=== PATIENT | male | born 1965 | race Caucasian/White ===

== ENCOUNTER 2024-02-07 07:37 | Observation (INO) ==
[2024-02-07] MEDS: ASPIRIN CHEW 324 MG PO STA (07:51)
--- NOTE | 2024-02-07 07:52 | Emergency Department Note ---
Impression & Plan Chest pain, Abnormal EKG ED Provider Note NAME: KRISTY BELLO AGE: 58 SEX: M : 1965 ARRIVES VIA: Walk-In INFORMANT: Patient, ED PROVIDER(S): Charlie Forde DO CHIEF COMPLAINT: Chest pain HPI: The patient is a 58-year-old male who presented to the emergency department for an evaluation of chest pain. The patient describes left-sided anterior chest pain. He states it began while he was driving to work. He denies having any vomiting. He does complain of some nausea. The pain is not worsened with lying flat or with breathing. He denies having any leg swelling or leg pain. The patient does not have a history of coronary artery disease. He has no history of a cath or stent. The patient came directly to the emergency department because he was on his way to work. The patient states the pain has been constant. ROS: See above HPI for pertinent positives & negatives. A total of 10 systems reviewed and were otherwise negative. PAST MEDICAL HISTORY: See Below PAST SURGICAL HISTORY: See Below FAMILY HISTORY: See Below SOCIAL HISTORY: See Below HOME MEDICATIONS: See Below ALLERGIES: See Below VITALS: See Below PHYSICAL EXAMINATION: GENERAL: Patient is awake alert in no acute distress patient is resting comfortably and showing no signs of anxiety EYES: The conjunctivae are clear. The pupils are round and reactive. EARS, NOSE, MOUTH AND THROAT: The nose is without any evidence of any deformity. NECK: The neck is nontender and supple. RESPIRATORY: Normal respiratory effort is noted there is no evidence of wheezing rhonchi or rales CARDIOVASCULAR: Regular rate and rhythm noted there no murmurs rubs or gallops normal S1 normal S2. GASTROINTESTINAL: The abdomen is soft. Abdomen is nontender. MUSCULOSKELETAL/EXTREMITIES: There is no evidence of gross deformity full range of motion is noted in the hips and shoulders. SKIN: There is no obvious evidence of any rash. There are no petechiae, pallor or cyanosis noted. NEUROLOGIC: Patient is awake alert and oriented x3 MEDICAL DECISION MAKING: The patient is a 58-year-old male who presented to the emergency department for an evaluation of chest pain. The patient describes chest pain that began at rest. The patient had some ST segment abnormalities that were very nonspecific on his initial EKG. Cardiac biomarker was negative x 2. Given the patient's age and comorbidities I do not feel that he would be a good candidate for outpatient management of this chest pain although I did discuss the patient's condition with him I discussed the patient's laboratory and radiographic studies with him. I also discussed the limitations of the emergency department workup for chest pain with him. I did calculate a heart score at the bedside which was 4. At this time the patient and his significant other did discuss the options and they would prefer inpatient workup for this as they do not live very close to the hospital. For this reason I discussed his condition with the on-call [facility] hospitalist. Triage Nursing notes reviewed. Prior medical records reviewed Vital Signs: reviewed and remarkable for no significant abnormalities Differential diagnosis: Cardiac ischemia, aortic dissection, pulmonary embolism, pneumothorax, pneumonia, pericarditis, myocarditis, esophageal rupture, GERD, cholecystitis, pancreatitis, musculoskeletal, as well as other pathologies. ER treatment provided: See below Diagnostics interpreted by me: ECG: EKG was obtained in the emergency department. My interpretation is normal sinus rhythm at 71 bpm. There was no ectopy. Early transition was noted with ST segment depression and T wave inversion noted in the anterior leads. No previous tracing was available. Cardiac Monitoring: An order was placed for continuous cardiac monitoring. The monitor shows a rate of 61 bpm with sinus rhythm. Laboratory studies: As stated above and show below. Imaging studies: See below. Radiographic imaging was reviewed by myself Consultation(s): I discussed this case with Roxann who is on-call for the [facility] group. Past Med/Surg History Problem List (Updated 02/07/24 @ 13:22 by Charlie Forde DO) Abnormal EKG (Acute) Chest pain (Acute) Social History Smoking Status: Former smoker Preferred Language: Welsh Feels Safe at Home: Yes Allergies Allergies Allergy/AdvReac Type Severity Reaction Status Date / Time [id number] Allergy Unknown Uncoded 03/18/04 12:20 Home Meds Home Medications Medication Instructions Recorded Confirmed doxycycline hyclate 100 mg capsule 100 mg PO BID 02/07/24 02/07/24 fenofibrate nanocrystallized 145 145 mg PO DAILY 02/07/24 02/07/24 mg tablet meloxicam 7.5 mg tablet 7.5 mg PO DAILY 12/11/24 12/11/24 simvastatin 20 mg tablet 20 mg PO DAILY 02/07/24 02/07/24 Results & Data (ED) Vital Signs Vital Signs - 24 hr 02/07/24 07:40 02/07/24 07:58 02/07/24 07:58 Temperature 36.2 C L Temperature Source Temporal Artery Scan Pulse Rate 66 62 Pulse Rhythm Regular Respiratory Rate 18 20 Blood Pressure 161/88 H Blood Pressure Mean 112 Pulse Oximetry 93 94 94 Oxygen Delivery Method Room Air Room Air Room Air Oxygen Flow Rate 0 Sepsis Recent Fever Within 48 Hours No Sepsis New/Unexplained Change in Mental Status No Sepsis Action Taken by Nursing No Action Required 02/07/24 08:54 02/07/24 08:55 02/07/24 09:30 Temperature Temperature Source Pulse Rate 64 61 57 L Pulse Rhythm Respiratory Rate 21 24 Blood Pressure 171/95 H 159/86 H Blood Pressure Mean 120 110 Pulse Oximetry 94 96 Oxygen Delivery Method Oxygen Flow Rate Sepsis Recent Fever Within 48 Hours Sepsis New/Unexplained Change in Mental Status Sepsis Action Taken by Nursing 02/07/24 09:30 02/07/24 10:00 Temperature Temperature Source Pulse Rate 61 Pulse Rhythm Respiratory Rate 20 Blood Pressure 159/86 H 148/85 H Blood Pressure Mean 112 108 Pulse Oximetry 95 Oxygen Delivery Method Oxygen Flow Rate Sepsis Recent Fever Within 48 Hours Sepsis New/Unexplained Change in Mental Status Sepsis Action Taken by [facility] Medications Current Medication List: was personally reviewed by me Laboratory Data Attestation: I reviewed the patient's lab results. 02/07/24 07:55 02/07/24 07:55 Lab Results 02/07/24 02/07/24 Range/Units 07:55 10:29 WBC 4.43 L (4.8-10.8) K/ul RBC 5.07 (4.70-6.10) M/uL Hgb 14.9 (14.0-18.0) g/dl Hct 44.7 (42.0-52.0) % MCV 88.2 (80.0-100.0) fL MCH 29.4 (25.0-34.0) pg MCHC 33.3 (32.0-36.0) g/dL RDW Std Deviation 41.1 (36.4-46.3) fL RDW Coeff of Taisha 12.8 (11.5-14.5) % Plt Count 288 (130-400) K/uL MPV 9.2 L (9.4-12.4) fL Immature Gran % (Auto) 0.2 % Neut % (Auto) 42.5 % Lymph % (Auto) 42.4 % [place] % (Auto) 9.9 % Eos % (Auto) 4.1 % Baso % (Auto) 0.9 % Neut # (Auto) 1.88 (1.40-6.50) K/uL Lymph # (Auto) 1.88 (1.20-3.40) K/uL [place] # (Auto) 0.44 (0.11-0.59) K/uL Eos # (Auto) 0.18 (0.00-0.50) K/uL Baso # (Auto) 0.04 (0.00-0.20) K/uL Immature Gran # (Auto) 0.01 (0.01-0.20) K/uL PT 10.6 (9.0-12.0) Seconds INR 1.0 (0.9-1.1) APTT 27 (21-31) Seconds PTT Ratio 1.0 D-Dimer 370 (0-500) ug/L FEU Sodium 139 (136-145) mmol/L Potassium 3.8 (3.5-5.1) mmol/L Chloride 105 (98-107) mmol/L Carbon Dioxide 29 (21-32) mmol/L Anion Gap 5 (3-11) BUN 20 (6-23) mg/dl Creatinine 0.92 (0.6-1.4) mg/dl Est Cr Clr Drug Dosing 126.1 ml/min eGFR 95.23 BUN/Creatinine Ratio 21.7 H (10-20) Glucose 150 H (70-99(Fasting)) mg/dl Calcium 9.3 (8.6-10.3) mg/dl Total Bilirubin 0.6 (0.2-1.0) mg/dl AST 25 (13-39) U/L ALT 35 (7-52) U/L Alkaline Phosphatase 82 (34-104) U/L Troponin I High Sens 6.6 5.9 (0-20) pg/ml Total Protein 7.0 (6.0-8.3) gm/dl Albumin 4.2 (3.4-5.0) gm/dl Globulin 2.8 (2.5-4.0) gm/dl Albumin/Globulin Ratio 1.5 (0.9-2) Lipase 15 (11-82) U/L Administered Medications Discontinued Medications Aspirin (Aspirin Chew 324 Mg) 324 mg PO NOW STA Stop: 02/07/24 07:50 Last Admin: 02/07/24 07:51 Dose: 324 mg Documented By: JASON Imaging Data Attestation: I personally reviewed and interpreted this imaging study as follows: My Impression: View chest x-ray was obtained in the emergency department. My interpretation is no free air or definite infiltrate, final report below. Radiologist's Impression: Chest X-Ray 02/07/24 07:49 XR chest 1V portable HISTORY: 58 years-old Male Chest pain, nonspecific acute mid chest pain COMPARISON: None TECHNIQUE: AP view of the chest FINDINGS: Cardiomediastinal and hilar silhouettes are within normal limits. There is no pneumothorax, pleural effusion or airspace consolidation. Bones appear grossly intact IMPRESSION: No acute process. ACT 112: Negative or not required by law. The above report was generated using voice recognition software. It may contain grammatical, syntax or spelling errors. Electronically signed by: Juan Rivera M.D. 02/07/2024 8:26 AM Discharge Plan Visit Data Chief Complaint: Chest Pain Stated Complaint: CHEST PAIN, FEELS WIERD ED Provider: Charlie Forde Discharge Problem: Chest pain, Abnormal EKG Patient Disposition: Admitted As Inpatient Discharge Instructions Interventions: ED Discharge Assessment Last Done: 02/07/24 13:14 Discharge Problem: Chest pain Qualifiers: Chest pain type: unspecified Qualified Code(s): R07.9 - Chest pain, unspecified
[2024-02-07 08:14] LABS: Basophils # (auto) 0.04 K/uL (0.00-0.20); Basophils % (auto) 0.9 %; Eosinophils # (auto) 0.18 K/uL (0.00-0.50); Eosinophils % (auto) 4.1 %; Hematocrit (blood only) 44.7 % (42.0-52.0); Hemoglobin 14.9 g/dl (14.0-18.0); Immature Granulocytes # (auto) 0.01 K/uL (0.01-0.20); Immature Granulocytes % (auto) 0.2 %; Lymphocytes # (auto) 1.88 K/uL (1.20-3.40); Lymphocytes % (auto) 42.4 %; Mean Corpuscular Hemoglobin 29.4 pg (25.0-34.0); Mean Corpuscular Hgb Conc 33.3 g/dL (32.0-36.0); Mean Corpuscular Volume 88.2 fL (80.0-100.0); Mean Platelet Volume 9.2 fL (9.4-12.4); Monocytes # (auto) 0.44 K/uL (0.11-0.59); Monocytes % (auto) 9.9 %; Neutrophils # (auto) 1.88 K/uL (1.40-6.50); Neutrophils % (auto) 42.5 %; Platelet Count 288 K/uL (130-400); RDW Coefficient of Variation 12.8 % (11.5-14.5); RDW Standard Deviation 41.1 fL (36.4-46.3); Red Blood Count 5.07 M/uL (4.70-6.10); White Blood Count 4.43 K/ul (4.8-10.8)
[2024-02-07 08:28] LABS: Albumin Globulin Ratio 1.5 (0.9-2); Albumin Level 4.2 gm/dl (3.4-5.0); BUN Creatinine Ratio 21.7 (10-20); Bilirubin,Total 0.6 mg/dl (0.2-1.0); Calcium 9.3 mg/dl (8.6-10.3); Creatinine Clr Calc Pharmacy 126.1 ml/min; Globulin 2.8 gm/dl (2.5-4.0); Potassium 3.8 mmol/L (3.5-5.1)
--- NOTE | 2024-02-07 08:28 | XRay Report ---
XR chest 1V portable HISTORY: 58 years-old Male Chest pain, nonspecific acute mid chest pain COMPARISON: None TECHNIQUE: AP view of the chest FINDINGS: Cardiomediastinal and hilar silhouettes are within normal limits. There is no pneumothorax, pleural e ffusion or airspace consolidation. Bones appear grossly intact IMPRESSION: No acute process. ACT 112: Negative or not required by law. The above report was generated using voice recognition software. It may contain grammatical, syntax o r spelling errors. Electronically signed by: Juan Rivera M.D. 02/07/2024 8:26 AM
[2024-02-07 08:34] LABS: Troponin I High Sensitivity 6.6 pg/ml (0-20)
[2024-02-07 08:49] LABS: D Dimer 370 ug/L FEU (0-500); Partial Thromboplastin Time 27 Seconds (21-31); Prothrombin Time 10.6 Seconds (9.0-12.0)
--- NOTE | 2024-02-07 10:27 | Electrocardiogram Report ---
Test Reason : Blood Pressure : */* mmHG Vent. Rate : 71 BPM Atrial Rate : 71 BPM P-R Int : 170 ms QRS Dur : 98 ms QT Int : 392 ms P-R-T Axes : 23 -25 52 degrees QTcB Int : 425 ms Normal sinus rhythm Incomplete right bundle branch block Nonspecific T wave abnormality Anteroseptal leads Abnormal ECG No previous ECGs available Confirmed by Jaycob Csae ([id number]) on 02/07/2024 10:27:42 AM Referred By: REFERRED SELF Confirmed By: Jaycob Case
--- NOTE | 2024-02-07 12:15 | History & Physical Report ---
Date of Service February 07, 2024 Assessment & Plan (1) Abnormal EKG: (2) Chest pain: Plan Assessment and plan: Left-sided chest painrule out ACS Abnormal EKG/systolic murmur: Chest pain resolved on exam, new systolic murmur noted EKG with ST changes in V3 and V2, troponin negative x 2 Echo completed and pending, n.p.o. for possible stress test in a.m. EKG in a.m., cardiology consult Hx HLD: Continue simvastatin/fenofibric Recent tick bite, suspected Lyme: last dose of doxycycline of 2-week course tonight 02/06 Total of 60 minutes was spent on chart review/reviewing diagnostic data/discussion with consultants/facilitating plan of care Full code DVT prophylaxis: Heparin subcu History of Present Illness Primary Care Provider: Colby Moscoso The patient is a 58-year-old male with a past medical history of HLD, recently treated for Lyme disease with Doxy 2 weeks ago, recent tick bite who presents to the ED on 02/07/2024 with complaints of left-sided chest pain that started this morning while the patient was driving to work. He reported the pain lasted for 3 hours and it was an achy pain. He denies any diaphoresis with this but did feel some nausea. He also reported some lightheadedness but denied any shortness of breath. Reports some ongoing shortness of breath with exertion. He denies any recent cough or respiratory symptoms. He does report a recent fever and generalized malaise/fatigue due to recent tick bite and suspected Lyme disease and SY the patient was started on doxycycline by his primary care provider. The patient was given aspirin and he is now chest pain-free on exam. He denies any other concerns including diarrhea/abdominal pain. The patient quit smoking recently. Reports drinking alcohol once a week denies any illicit drug use Denies any cardiac history. Does have a half brother that recently had cardiac stents placed His EKG showed some ST changes in anterior leadsV1 and V3 Chest x-ray negative Labs fairly unremarkable The patient will be admitted for further ACS workup Allergies Allergy/AdvReac Type Severity Reaction Status Date / Time [id number] Allergy Unknown Uncoded 03/18/04 12:20 Home Medications Medication Instructions Recorded Confirmed Type doxycycline hyclate 100 mg capsule 100 mg PO BID 02/07/24 02/07/24 History fenofibrate nanocrystallized 145 145 mg PO DAILY 02/07/24 02/07/24 History mg tablet meloxicam 7.5 mg tablet 7.5 mg PO DAILY 02/07/24 02/07/24 History simvastatin 20 mg tablet 20 mg PO DAILY 02/07/24 02/07/24 History Past Med/Surg History Problem List (Updated 02/07/24 @ 15:38 by Maria Teresa Brown PA-C) Dyslipidemia Hypertension Abnormal EKG (Acute) Chest pain (Acute) Medical History (Updated 02/07/24 @ 15:38 by Maria Teresa Brown PA-C) No known health problems Social History Smoking Status: Former smoker Tobacco Type: Smokeless Tobacco (Dip or Chew) Second Hand Exposure: No; Do You Dip or Chew Tobacco: No (quit); Tobacco Cessation Education Requested by Patient: No Hx Alcohol Use: No Hx Substance Use: Yes Last Used Substance: Unknown Last Used Substance Other:: former user Preferred Language: Bruneian Communication Ability: Effective Drycleaner Required: No Beliefs That Will Affect Care: None Current Living Situation: Spouse Other Information That Helps Us Care for You: No Feels Safe at Home: Yes Safety Concerns: Feels Safe At This Time Assistive Devices: None Review of Systems Review of Systems: All systems reviewed & are unremarkable except as noted in HPI & below Physical Exam Constitutional: WD/WN, vitals as above Eyes: PERRL, conjunctivae normal, anicteric sclerae ENMT: external ear and nose normal, oropharynx normal Respiratory: normal respiratory effort, lungs clear to auscultation Cardiovascular: RRR, no murmur, no edema (New systolic murmur noted) Gastrointestinal (Abdomen): normal bowel sounds, soft, nontender, no hepatospl enomegaly Musculoskeletal: no cyanosis or clubbing, extremities motor strength 5/5 Neurologic: PERRL, EOMI, accommodation nl, no face palsy, no dysarthria Psychiatric: A+Ox3, euthymic affect Lymphatic: no cervical or axillary lymphadenopathy Results & Data Results & Data Vital Signs (Past 12 Hours) Vital Signs Temp Pulse Resp BP Pulse Ox O2 Del Method O2 Flow Rate 02/07/24 10:00 61 20 148/85 H 95 02/07/24 09:30 159/86 H 02/07/24 09:30 57 L 24 159/86 H 96 02/07/24 08:55 61 02/07/24 08:54 64 21 171/95 H 94 02/07/24 07:58 62 20 94 Room Air 02/07/24 07:58 94 Room Air 0 02/07/24 07:40 36.2 C L 66 18 161/88 H 93 Room Air Diagnostic Findings Laboratory Results WBC 4.43 K/ul (4.8-10.8) L 02/07/24 07:55 RBC 5.07 M/uL (4.70-6.10) 02/07/24 07:55 Hgb 14.9 g/dl (14.0-18.0) 02/07/24 07:55 Hct 44.7 % (42.0-52.0) 02/07/24 07:55 MCV 88.2 fL (80.0-100.0) 02/07/24 07:55 MCH 29.4 pg (25.0-34.0) 02/07/24 07:55 MCHC 33.3 g/dL (32.0-36.0) 02/07/24 07:55 RDW Std Deviation 41.1 fL (36.4-46.3) 02/07/24 07:55 RDW Coeff of Taisha 12.8 % (11.5-14.5) 02/07/24 07:55 Plt Count 288 K/uL (130-400) 02/07/24 07:55 MPV 9.2 fL (9.4-12.4) L 02/07/24 07:55 Immature Gran % (Auto) 0.2 % 02/07/24 07:55 Neut % (Auto) 42.5 % 02/07/24 07:55 Lymph % (Auto) 42.4 % 02/07/24 07:55 [place] % (Auto) 9.9 % 02/07/24 07:55 Eos % (Auto) 4.1 % 02/07/24 07:55 Baso % (Auto) 0.9 % 02/07/24 07:55 Neut # (Auto) 1.88 K/uL (1.40-6.50) 02/07/24 07:55 Lymph # (Auto) 1.88 K/uL (1.20-3.40) 02/07/24 07:55 [place] # (Auto) 0.44 K/uL (0.11-0.59) 02/07/24 07:55 Eos # (Auto) 0.18 K/uL (0.00-0.50) 02/07/24 07:55 Baso # (Auto) 0.04 K/uL (0.00-0.20) 02/07/24 07:55 Immature Gran # (Auto) 0.01 K/uL (0.01-0.20) 02/07/24 07:55 PT 10.6 Seconds (9.0-12.0) 02/07/24 07:55 INR 1.0 (0.9-1.1) 02/07/24 07:55 APTT 27 Seconds (21-31) 02/07/24 07:55 PTT Ratio 1.0 02/07/24 07:55 D-Dimer 370 ug/L FEU (0-500) 02/07/24 07:55 Sodium 139 mmol/L (136-145) 02/07/24 07:55 Potassium 3.8 mmol/L (3.5-5.1) 02/07/24 07:55 Chloride 105 mmol/L (98-107) 02/07/24 07:55 Carbon Dioxide 29 mmol/L (21-32) 02/07/24 07:55 Anion Gap 5 (3-11) 02/07/24 07:55 BUN 20 mg/dl (6-23) 02/07/24 07:55 Creatinine 0.92 mg/dl (0.6-1.4) 02/07/24 07:55 Est Cr Clr Drug Dosing 126.1 ml/min 02/07/24 07:55 eGFR 95.23 02/07/24 07:55 BUN/Creatinine Ratio 21.7 (10-20) H 02/07/24 07:55 Glucose 150 mg/dl (70-99(Fasting)) H 02/07/24 07:55 Calcium 9.3 mg/dl (8.6-10.3) 02/07/24 07:55 Total Bilirubin 0.6 mg/dl (0.2-1.0) 02/07/24 07:55 AST 25 U/L (13-39) 02/07/24 07:55 ALT 35 U/L (7-52) 02/07/24 07:55 Alkaline Phosphatase 82 U/L (34-104) 02/07/24 07:55 Troponin I High Sens 5.9 pg/ml (0-20) 02/07/24 10:29 Total Protein 7.0 gm/dl (6.0-8.3) 02/07/24 07:55 Albumin 4.2 gm/dl (3.4-5.0) 02/07/24 07:55 Globulin 2.8 gm/dl (2.5-4.0) 02/07/24 07:55 Albumin/Globulin Ratio 1.5 (0.9-2) 02/07/24 07:55 Lipase 15 U/L (11-82) 02/07/24 07:55 Impressions Chest X-Ray 02/07/24 07:49 XR chest 1V portable HISTORY: 58 years-old Male Chest pain, nonspecific acute mid chest pain COMPARISON: None TECHNIQUE: AP view of the chest FINDINGS: Cardiomediastinal and hilar silhouettes are within normal limits. There is no pneumothorax, pleural effusion or airspace consolidation. Bones appear grossly intact IMPRESSION: No acute process. ACT 112: Negative or not required by law. The above report was generated using voice recognition software. It may contain grammatical, syntax or spelling errors. Electronically signed by: Juan Rivera M.D. 02/07/2024 8:26 AM Supervising Physician Co-Signing Physician Notes Patient is a 58-year-old male with history of hypertension, obesity, recently had Lyme's disease and other medical problems presents with history of left- sided chest pain which lasted for about 3 hours, achy in nature while working this morning. Patient feels nauseous but no vomiting. He also states having some dizziness but denies any shortness of breath. His last course of doxycycline for Lyme's disease is today. Please review HPI for complete details of presentation. I personally reviewed blood work and imaging studies. Chest x-ray no acute process. Troponin x 2 negative. EKG showed normal sinus rhythm with T wave inversions in anterior leads. Physical Exam: Vitals signs as noted above General Appearance: Obese, no apparent distress Head: normocephalic, Atraumatic Eyes: normal inspection, EOMI Neck: supple, Trachea midline Respiratory/Chest: Normal breath sounds, CTA, No accessory muscle use Cardiovascular: S1, S2, + murmur Abdomen/GI:Soft, Non tender, Bowel sounds present Extremities/Musculoskeletal:normal inspection, no edema Neurologic/Psych:AAOX3, grossly no focal neurological deficits Skin: normal color, warm, + left shoulder tick bite rash Chest pain rule out ACS Abnormal EKG Troponin x 2 negative Echo pending Started on aspirin Check lipid panel, A1c Nitroglycerin as needed Cardiology consulted N.p.o. after midnight for possible stress test tomorrow Hypertension Likely situational Started losartan Monitor blood pressure I personally interviewed and examined at bedside. Patient's care is coordinated with Juan MORAN. I have reviewed the advanced practitioner's documentation, and I agree with plan of care. Please refer to the documentation above for details of patient's presentation and for discussion of other issues. I spent a total [id number] coordinating, documenting, and providing care for this patient excluding time spent in the performance of separately billed services. (2) Chest pain Chest pain type: unspecified Qualified Code(s): R07.9 - Chest pain, unspecified
[2024-02-07] MEDS ORDERED: ACETAMINOPHEN 325 MG TAB PO PRN (12:58)
[2024-02-07] MEDS ORDERED: NITROGLYCERIN SL 0.4 MG/TAB TAB SL PRN (12:58)
[2024-02-07] MEDS: HEPARIN SOD 5,000 UNIT/0.5 ML VIAL SQ SCH (13:36)
--- NOTE | 2024-02-07 15:23 | Cardiology Consultation ---
Date of Consultation February 07, 2024 Assessment & Plan (1) Chest pain: (2) Abnormal EKG: (3) Hypertension: (4) Dyslipidemia: Plan Patient admitted after an episode of chest pain lasting several hours. No radiation. Non exertional. No associated symptoms. Now resolved. EKG on arrival demonstrated NSR with T wave inversions in anterior leads, new compared to prior EKG in 2018 HS troponin negative x2 Echo demonstrating Normal LVEF without wall motion abnormalities, mild LVH, and mildly dilated aortic root. He has been hypertensive since arrival. He admits his BP was elevated about 3 weeks ago at PCP visit, but otherwise controlled. Recommend starting losartan 25 mg daily. Titrate as needed and monitor BP Start ASA 81 mg daily Continue fenofibrate and statin - home meds. Given episode of chest pain and cardiac risk factors, and abnormal EKG, recommend ischemic work up with an exercise stress echo. Patient with mild knee problems, but feels he would be able to ambulate on a treadmill. NPO after midnight for stress echo in the morning. Case discussed with Dr. Berg I spent a total of 60 minutes on the date of service in preparation, delivery, and documentation of the care provided to this patient, excluding any time spent in the performance of separately billed services. Maria Teresa Brown PA-C Department of Cardiology, [facility] This chart was completed in part utilizing Speech Voice Recognition Software. Grammatical errors, random word insertions, pronoun errors, and incomplete sentences are an occasional consequence of this system due to software limitations, ambient noise, and hardware issues. Any formal questions or concerns about the content, text, or information contained within the body of this dictation should be directly addressed to the provider for clarification. Supervising Physician Co-Signing Physician Notes Attending attestation: Case reviewed with the advanced practitioner. I have personally performed a history and physical examination on the patient. I have reviewed the advanced practitioner's documentation on the date of service referenced in note, and I agree with, and take responsibility for the plan of care. Subjective: Patient comfortable during my assessment. Completed his evening meal without difficulty. Telemetry reveals sinus rhythm. Exam: Cardiovascular: Regular rhythm, no murmurs, no edema Data: EKG performed earlier today sinus rhythm with nonspecific ST changes in the anterior precordial leads. Resting echocardiogram performed today revealed normal resting wall motion normal LVEF. High sensitive troponin has been negative x 2 thus far, next measurement to due at 1858 Impression/ Plan: Chest pain Elevated blood pressure without the diagnosis of hypertension -Agree with telemetry admission. -N.p.o. after midnight. -Trend troponin. -If troponin negative on serial measurements, we will proceed with stress echocardiogram tomorrow. Patient agreeable to plan. I spent a total of 20 minutes coordinating, documenting, and providing care for this patient excluding time spent in the performance of separately billed services or time spent by another provider. Trung Berg, History of Present Illness Reason for Consultation: Chest pain Requesting Physician: Deb Hospitalist Attending Physician: Dr. Berg History of Present Illness Patient is a 58-year-old male who presented to [facility] this morning with complaints of sudden onset left-sided chest pain.He was driving to work when this occurred. No radiation or associated symptoms. Symptoms lasted 1 to 2 hours and therefore he came to the ER for evaluation. Upon arrival to the emergency room he was found to be hypertensive.He reports his blood pressure is typically well-controlled and he has never been on antihypertensive therapy. EKG demonstrated normal sinus rhythm with incomplete right bundle branch block and nonspecific T wave abnormality in anteroseptal leads.High-sensitivity troponin negative x 2 since admission. Patient has been chest pain-free since admission. He denies a history of cardiovascular problems including CAD, CHF, valvular heart disease or arrhythmias. He is treated for hyperlipidemia with simvastatin and fenofibrate. He recently saw his PCP for myalgias and fevers after a tick bite. Lyme testing was not completed but he was treated with 14 days of doxycycline. He is to take the last dose tonight. Fevers resolved. No recent rashes. At time of evaluation, patient resting in bed, without complaints. No recurrent chest pain or unusual shortness of breath. He denies recent exertional chest pain or changes to his functional capacity. He admits to shortness of breath when hunting and trying to climb up a mountain but he feels this is his normal baseline. He has never had a stress test to his knowledge. Allergies Allergy/AdvReac Type Severity Reaction Status Date / Time [id number] Allergy Unknown Uncoded 03/18/04 12:20 Home Medications Medication Instructions Recorded Confirmed Type doxycycline hyclate 100 mg capsule 100 mg PO BID 02/07/24 02/07/24 History fenofibrate nanocrystallized 145 145 mg PO DAILY 02/07/24 02/07/24 History mg tablet meloxicam 7.5 mg tablet 7.5 mg PO DAILY 02/07/24 02/07/24 History simvastatin 20 mg tablet 20 mg PO DAILY 02/07/24 02/07/24 History Patient History Medical History (Updated 02/07/24 @ 15:38 by Maria Teresa Brown PA-C) No known health problems Social History Smoking Status: Former smoker Tobacco Type: Smokeless Tobacco (Dip or Chew) Second Hand Exposure: No; Do You Dip or Chew Tobacco: No (quit); Tobacco Cessation Education Requested by Patient: No Hx Alcohol Use: No Hx Substance Use: Yes Last Used Substance: Unknown Last Used Substance Other:: former user Preferred Language: Russian Communication Ability: Effective Jewelry Dipper Required: No Beliefs That Will Affect Care: None Current Living Situation: Spouse Other Information That Helps Us Care for You: No Feels Safe at Home: Yes Safety Concerns: Feels Safe At This Time Assistive Devices: None Review of Systems Review of Systems: All systems reviewed & are unremarkable except as noted in HPI & below Physical Exam Constitutional: WD/WN, vitals as above well developed; no acute distress Neck: trachea midline, no thyromegaly Respiratory: normal respiratory effort, lungs clear to auscultation Cardiovascular: RRR, no murmur, no edema Gastrointestinal (Abdomen): normal bowel sounds, soft, nontender, no hepato splenomegaly Neurologic: PERRL, EOMI, accommodation nl, no face palsy, no dysarthria Psychiatric: A+Ox3, euthymic affect Results & Data Vital Signs (Past 12 Hours) Vital Signs Temp Pulse Pulse Resp BP BP Pulse Ox 02/07/24 13:05 58 L 02/07/24 13:03 36.5 C 56 L 16 161/87 H 97 02/07/24 12:58 60 02/07/24 12:55 02/07/24 10:00 61 20 148/85 H 95 02/07/24 09:30 159/86 H 02/07/24 09:30 57 L 24 159/86 H 96 02/07/24 08:55 61 02/07/24 08:54 64 21 171/95 H 94 02/07/24 07:58 62 20 94 12/11/24 07:58 94 02/07/24 07:40 36.2 C L 66 18 161/88 H 93 O2 Del Method O2 Flow Rate 02/07/24 13:05 02/07/24 13:03 Room Air 02/07/24 12:58 02/07/24 12:55 Room Air 0 02/07/24 10:00 02/07/24 09:30 02/07/24 09:30 02/07/24 08:55 02/07/24 08:54 02/07/24 07:58 Room Air 02/07/24 07:58 Room Air 0 02/07/24 07:40 Room Air Laboratory Results Cardiac Enzymes 02/07/24 02/07/24 Range/Units 07:55 10:29 AST 25 (13-39) U/L Troponin I High Sens 6.6 5.9 (0-20) pg/ml Coagulation 02/07/24 Range/Units 07:55 PT 10.6 (9.0-12.0) Seconds APTT 27 (21-31) Seconds CBC 02/07/24 Range/Units 07:55 WBC 4.43 L (4.8-10.8) K/ul RBC 5.07 (4.70-6.10) M/uL Hgb 14.9 (14.0-18.0) g/dl Hct 44.7 (42.0-52.0) % Plt Count 288 (130-400) K/uL Neut # (Auto) 1.88 (1.40-6.50) K/uL Lymph # (Auto) 1.88 (1.20-3.40) K/uL Burnet # (Auto) 0.44 (0.11-0.59) K/uL Eos # (Auto) 0.18 (0.00-0.50) K/uL Baso # (Auto) 0.04 (0.00-0.20) K/uL Comprehensive Metabolic Panel 02/07/24 Range/Units 07:55 Sodium 139 (136-145) mmol/L Potassium 3.8 (3.5-5.1) mmol/L Chloride 105 (98-107) mmol/L Carbon Dioxide 29 (21-32) mmol/L BUN 20 (6-23) mg/dl Creatinine 0.92 (0.6-1.4) mg/dl Glucose 150 H (70-99(Fasting)) mg/dl Calcium 9.3 (8.6-10.3) mg/dl AST 25 (13-39) U/L ALT 35 (7-52) U/L Alkaline Phosphatase 82 (34-104) U/L Total Protein 7.0 (6.0-8.3) gm/dl Albumin 4.2 (3.4-5.0) gm/dl Intake and Output 02/07/24 02/07/24 02/07/24 06:59 14:59 22:59 Other: Weight 131 kg Weight Measurement Method Built in [facility] Patient Weight 02/08/24 06:59 Weight 131 kg Diagnostic Findings Telemetry reviewed: NSR, no arrhythmias EKG reviewed: NSR with incomplete RBBB, T wave inversions in anterior leads. Compared to outpatient EKG in 2018, T wave inversions are new Echo report reviewed: Normal LVEF at 55-60% No wall motion abnormalities Mild LVH Aortic root is mildly dilated at 4.1 cm Prox ascending aorta not well visualized Mild pulm hypertension Chest X-Ray 02/07/24 07:49 XR chest 1V portable HISTORY: 58 years-old Male Chest pain, nonspecific acute mid chest pain COMPARISON: None TECHNIQUE: AP view of the chest FINDINGS: Cardiomediastinal and hilar silhouettes are within normal limits. There is no pneumothorax, pleural effusion or airspace consolidation. Bones appear grossly intact IMPRESSION: No acute process. Medications Administered Current Inpatient Medications Acetaminophen (Acetaminophen 325 Mg Tab) 650 mg PO Q4H PRN PRN Reason: Pain or Fever Stop: 03/08/24 12:57 Aspirin (Aspirin 81 Mg Ectab) 81 mg PO QAM [facility] Stop: 03/09/24 08:59 Doxycycline Hyclate (Doxycycline Hyclate 100 Mg Cap) 100 mg PO ONCE ONE Stop: 02/07/24 21:01 Fenofibrate (Fenofibrate Nanocrystallized 145 Mg Tablet) 145 mg PO DAILY [facility] Stop: 03/09/24 08:59 Heparin Sodium (Porcine) (Heparin Sod 5,000 Unit/0.5 Ml Vial) 5,000 units SQ Q8 [facility]ANNE Stop: 03/08/24 13:59 Last Admin: 02/07/24 13:36 Dose: 5,000 units Nitroglycerin (Nitroglycerin Sl 0.4 Mg/Tab Tab) 0.4 mg SL Q5M PRN PRN Reason: Chest Pain Stop: 03/08/24 12:57 Simvastatin (Simvastatin 20 Mg Tab) 20 mg PO DAILY [facility]YANNE Stop: 03/09/24 08:59 (1) Chest pain Chest pain type: unspecified Qualified Code(s): R07.9 - Chest pain, unspecified
[2024-02-07 15:36] LABS: Adenovirus PCR Not Detected (NotDetected); Bordetella parapertussis PCR Not Detected (NotDetected); Bordetella pertussis PCR Not Detected (NotDetected); Chlamydia pneumoniae PCR Not Detected (NotDetected); Coronavirus 229E PCR Not Detected (NotDetected); Coronavirus CoV-2 (COVID19)PCR Not Detected (NotDetected); Coronavirus HKU1 PCR Not Detected (NotDetected); Coronavirus NL63 PCR Not Detected (NotDetected); Coronavirus OC43PCR Not Detected (NotDetected); Human Metapneumovirus PCR Not Detected (NotDetected); Influenza A PCR Not Detected (NotDetected); Influenza B PCR Not Detected (NotDetected); Mycoplasma pneumoniae PCR Not Detected (NotDetected); Parainfluenza Virus 1 PCR Not Detected (NotDetected); Parainfluenza Virus 2 PCR Not Detected (NotDetected); Parainfluenza Virus 3 PCR Not Detected (NotDetected); Parainfluenza Virus 4 PCR Not Detected (NotDetected); Respiratory Syncytial VirusPCR Not Detected (NotDetected); Rhinovirus/Enterovirus PCR Not Detected (NotDetected)
[2024-02-07 16:02] VITALS: RESP 18
[2024-02-07] MEDS: LOSARTAN POTASSIUM 25 MG TAB PO SCH (16:16)
[2024-02-07 17:41] LABS: Estimated Average Glucose 143 mg/dl; Hemoglobin A1C 6.6 % (4.5-5.6)
[2024-02-07 18:54] LABS: Chol HDL Ratio 5.1 (0-5)
[2024-02-07] MEDS: DOXYCYCLINE HYCLATE 100 MG CAP PO ONE (20:46)
[2024-02-08 06:21] LABS: Hematocrit (blood only) 43.8 % (42.0-52.0); Hemoglobin 14.3 g/dl (14.0-18.0); Mean Corpuscular Hemoglobin 28.7 pg (25.0-34.0); Mean Corpuscular Hgb Conc 32.6 g/dL (32.0-36.0); Mean Platelet Volume 9.6 fL (9.4-12.4); Platelet Count 278 K/uL (130-400); RDW Coefficient of Variation 12.6 % (11.5-14.5); RDW Standard Deviation 40.7 fL (36.4-46.3); Red Blood Count 4.98 M/uL (4.70-6.10); White Blood Count 4.73 K/ul (4.8-10.8)
[2024-02-08 06:39] LABS: Albumin Globulin Ratio 1.4 (0.9-2); Albumin Level 3.9 gm/dl (3.4-5.0); BUN Creatinine Ratio 18.9 (10-20); Bilirubin,Total 0.9 mg/dl (0.2-1.0); Calcium 8.9 mg/dl (8.6-10.3); Globulin 2.7 gm/dl (2.5-4.0); Magnesium 2.1 mg/dl (1.7-2.4); Potassium 3.9 mmol/L (3.5-5.1); Total Protein 6.6 gm/dl (6.0-8.3)
[2024-02-08 07:49] VITALS: O2SAT 94
[2024-02-08] MEDS: FENOFIBRATE NANOCRYSTALLIZED 145 MG TABLET PO SCH (08:05)
[2024-02-08] MEDS: ASPIRIN 81 MG ECTAB PO SCH (08:06)
[2024-02-08] MEDS: SIMVASTATIN 20 MG TAB PO SCH (08:06)
--- NOTE | 2024-02-08 08:57 | Electrocardiogram Report ---
Test Reason : Blood Pressure : */* mmHG Vent. Rate : 62 BPM Atrial Rate : 62 BPM P-R Int : 174 ms QRS Dur : 98 ms QT Int : 414 ms P-R-T Axes : 31 -40 41 degrees QTcB Int : 420 ms Normal sinus rhythm Left anterior fascicular block Abnormal ECG When compared with ECG of 07-Feb-2024 07:48, Incomplete right bundle branch block is no longer Present T wave inversion no longer evident in Anteroseptal leads Confirmed by Jaycob Case ([id number]) on 02/08/2024 8:57:03 AM Referred By: REFERRED SELF Confirmed By: Jaycob Case
--- NOTE | 2024-02-08 10:18 | Cardiology Progress Note ---
Date of Service February 08, 2024 Assessment & Plan (1) Chest pain: (2) Abnormal EKG: (3) Hypertension: (4) Dyslipidemia: Plan Exercise stress echocardiogram was negative for ischemia having reached a moderately high workload. A hypertensive blood pressure response to exercise was observed. Recommend losartan 25 recommend losartan 25 mg daily for treatment of hypertension. Patient will need an outpatient basic metabolic panel after he has been on losartan for 7 to 10 days to reassess the kidney function and electrolytes. LDL cholesterol 84 mg/dL. Continue outpatient simvastatin and fenofibrate for now. Future considerations include transitioning him to a more prudent statin such as atorvastatin or rosuvastatin, but I think it would be gramajo to only make 1 medication change at a time and the losartan is a higher priority at present. Weight loss recommended with diet and aerobic exercise. Patient stable from a cardiology perspective for discharge. Recommend follow-up with PCP with regards to hypertension And ongoing cardiac risk factor modification. Admission and Anticipated Discharge Date Admission Date: February 07, 2024 Subjective Patient seen prior to, during, and after stress echocardiogram. No additional chest discomfort overnight or this morning. Physical Exam Physical Exam: General: no acute distress and stated age Eyes: conjunctiva are pink and non-injected, sclera clear Neck: normal jugular venous pulse, no hepatojugular reflux Chest: normal shape and normal respiratory effort Lungs: clear to auscultation and percussion Cardiac Exam: - regular heart sounds, no murmurs, rubs, or gallops, no jugular venous distention Musculoskeletal: no gait disturbance, no weakness Extremities: no edema and no cyanosis Neuro:awake, conversant, follows commands, no focal motor deficits Results & Data Vital Signs (Past 12 Hours) Vital Signs Temp Pulse Pulse Resp BP BP Pulse Ox 02/08/24 08:00 62 02/08/24 07:48 36.9 C 60 18 147/87 H 94 02/08/24 02:41 36.5 C 55 L 18 137/77 96 02/07/24 23:31 55 L 02/07/24 22:35 36.6 C 70 18 133/78 96 O2 Del Method 02/08/24 08:00 02/08/24 07:48 Room Air 02/08/24 02:41 Room Air 02/07/24 23:31 02/07/24 22:35 Room Air Laboratory Results Cardiac Enzymes 12/01/2002/07/24 02/07/24 Range/Units 10:29 13:56 18:14 AST (13-39) U/L Troponin I High Sens 5.9 6.0 6.3 (0-20) pg/ml 02/08/24 Range/Units 05:27 AST 23 (13-39) U/L Troponin I High Sens (0-20) pg/ml Lipids 02/07/24 Range/Units 13:56 Triglycerides 301 H (0-150) mg/dl Cholesterol 179 (0-200) mg/dl HDL Cholesterol 35 mg/dl Cholesterol/HDL Ratio 5.1 H (0-5) CBC 02/08/24 Range/Units 05:27 WBC 4.73 L (4.8-10.8) K/ul RBC 4.98 (4.70-6.10) M/uL Hgb 14.3 (14.0-18.0) g/dl Hct 43.8 (42.0-52.0) % Plt Count 278 (130-400) K/uL Comprehensive Metabolic Panel 02/08/24 Range/Units 05:27 Sodium 138 (136-145) mmol/L Potassium 3.9 (3.5-5.1) mmol/L Chloride 106 (98-107) mmol/L Carbon Dioxide 25 (21-32) mmol/L BUN 17 (6-23) mg/dl Creatinine 0.90 (0.6-1.4) mg/dl Glucose 111 H (70-99(Fasting)) mg/dl Calcium 8.9 (8.6-10.3) mg/dl AST 23 (13-39) U/L ALT 33 (7-52) U/L Alkaline Phosphatase 65 (34-104) U/L Total Protein 6.6 (6.0-8.3) gm/dl Albumin 3.9 (3.4-5.0) gm/dl Intake and Output 02/07/24 02/08/24 02/08/24 22:59 06:59 14:59 Intake Total 600 / 600 Balance 600 / 600 Intake: Oral 600 / 600 Other: Other Intake Source npo NPO Weight 131.1 kg (1) Chest pain Chest pain type: unspecified Qualified Code(s): R07.9 - Chest pain, unspecified
--- NOTE | 2024-02-08 11:21 | Discharge Summary ---
Date of Service February 08, 2024 Admission HPI Per Admitting Provider The patient is a 58-year-old male with a past medical history of HLD, recently treated for Lyme disease with Doxy 2 weeks ago, recent tick bite who presents to the ED on 02/07/2024 with complaints of left-sided chest pain that started this morning while the patient was driving to work. He reported the pain lasted for 3 hours and it was an achy pain. He denies any diaphoresis with this but did feel some nausea. He also reported some lightheadedness but denied any shortness of breath. Reports some ongoing shortness of breath with exertion. He denies any recent cough or respiratory symptoms. He does report a recent fever and generalized malaise/fatigue due to recent tick bite and suspected Lyme disease and the patient was started on doxycycline by his primary care provider. The patient was given aspirin and became chest pain-free. He reports that he quit smoking tobacco recently and reports social alcohol use. Originally, his EKG showed some ST changes in the anterior leads V1 to V3 which resolved this morning without any ischemic changes identified. His CXR was negateive. He was admitted for further work up to r/o ACS. Admission Exam Per Admitting Provider Constitutional: WD/WN, vitals as above Eyes: PERRL, conjunctivae normal, anicteric sclerae ENMT: external ear and nose normal, oropharynx normal Respiratory: normal respiratory effort, lungs clear to auscultation Cardiovascular: RRR, no murmur, no edema (New systolic murmur noted) Gastrointestinal (Abdomen): normal bowel sounds, soft, nontender, no hepatosplenomegaly Musculoskeletal: no cyanosis or clubbing, extremities motor strength 5/5 Neurologic: PERRL, EOMI, accommodation nl, no face palsy, no dysarthria Psychiatric: A+Ox3, euthymic affect Lymphatic: no cervical or axillary lymphadenopathy Principal Diagnosis chest pain Discharge Exam Neuro: AAOx4, PERRLA, no aphagia, memory changes, CNII-XII grossly intact HEENT: head normocephalic, moist mucus membranes CV: S1/S2, (-) M/G/R, (-) edema, cap refill < 3 seconds Resp: Lungs CTA in all sanchez. On RA GI: Abdomen S/NT/ND, Ax4 bowel sounds, (-) CVA tenderness Musculoskeletal: 5/5 B/L UE strength, 5/5 B/L LE strength. No gait disturbance Skin: (-) rashes , (-) erythema. Psych: euthymic mood Discharge Data Allergies Allergy/AdvReac Type Severity Reaction Status Date / Time [id number] Allergy Unknown Uncoded 03/18/04 12:20 Consultations 02/07/24 12:58 Consult Cardiology Routine Ordered Studies An ECHO stress test was performed by Dr. Berg with Cardiology on 02/08/24. The stress test was negative for ischemia without signs or symptoms suggestive of reproducible angina. His resting blood pressure peaked with a BP of 243/101. His stress test was terminated due to fatigue and elevated BP. See recommendations outlined below. XR chest 1V portable HISTORY: 58 years-old Male Chest pain, nonspecific acute mid chest pain COMPARISON: None TECHNIQUE: AP view of the chest FINDINGS: Cardiomediastinal and hilar silhouettes are within normal limits. There is no pneumothorax, pleural effusion or airspace consolidation. Bones appear grossly intact IMPRESSION: No acute process. ACT 112: Negative or not required by law. The above report was generated using voice recognition software. It may contain grammatical, syntax or spelling errors. Electronically signed by: Juan Rivera M.D. 02/07/2024 8:26 AM Hospital Course (1) Chest pain: (2) Hypertension: (3) Dyslipidemia: (4) Abnormal EKG: Plan The patient is a 58-year-old male with a past medical history of HLD, recently treated for Lyme disease with Doxy 2 weeks ago, recent tick bite who presents to the ED on 02/07/2024 with complaints of left-sided chest pain that started this morning while the patient was driving to work. He reported the pain lasted for 3 hours and it was an achy pain. He denies any diaphoresis with this but did feel some nausea. He also reported some lightheadedness but denied any shortness of breath. Reports some ongoing shortness of breath with exertion. He denies any recent cough or respiratory symptoms. He does report a recent fever and generalized malaise/fatigue due to recent tick bite and suspected Lyme disease and the patient was started on doxycycline by his primary care provider. The patient was given aspirin and became chest pain-free. He reports that he quit smoking tobacco recently and reports social alcohol use. Originally, his EKG showed some ST changes in the anterior leads V1 to V3 which resolved this morning without any ischemic changes identified. His CXR was nega teive. He was admitted for further work up to r/o ACS. Patient was evaluated by Cardiology and a stress echocardiogram was performed and negative for ischemia. There were no signs or symptoms suggestive of angina reproduced. His resting blood pressure elevated as you exercised with a peak blood pressure of 243/101. A chest x-ray was negative for acute cardiopulmonary disease He was started on Losartan and Aspirin. It was recommended that he continue to take his prescribed simvastatin and fenofibrate. He will follow up with his PCP within one weeks time. He was deemed stable on discharge. Total Time Total Time Spent Total Time Spent (In Minutes): I spent a total of 56 minutes coordinating, documenting, and providing care for this patient excluding time spent in the performance of separately billed services. All of the aforementioned completed while collaborating with the assigned attending physician for a full treatment plan. Please see their addendum for further details. Discharge Plan Discharge Items Patient Disposition: Home - Self-Care Reason For Visit: L SIDED CP Discharge Diagnosis: chest pain Condition on Discharge: Good Activity: Resume your previous activity Non-emergency contact: Primary Care Provider Call non-emergency contact if: you have any medication questions, your symptoms worsen and your temperature is above 101 Follow-up/Referrals: Colby Moscoso D.O. [Primary Care Provider] - (Talked to Latosha and your primary care physician will contact you for a hospital follow up appointment. ) Diet: Heart Healthy Addtl Attending Provider Instructions: Mr. Staples, Geovani presented to the [facility] with chest pain that started on the left side of your chest on 02/07/24. You underwent testing that included a troponin level (protein in your heart that can elevate when having an acute cardiac event, electrolytes and biofire to rule out respiratory infection. An Echocardiogram was completed with the results outlined below. You were evaluated by Cardiology who performed a stress echocardiogram today that was negative for ischemia (reduced blood flow). Blood pressure did elevate during the exercise that was observed. Upon completion of the test it is recommended that you continue with a blood pressure medication called losartan as outlined below for treatment of your high blood pressure. You will follow-up with your PCP for follow-up blood work and adjustments to your blood pressure medicine as necessary. Please continue taking your prescribed simvastatin and fenofibrate for now. It is recommended to pursue weight loss options with diet and aerobic exercise to decrease your risk of heart attack and stroke. MEDICATION CHANGES/ADDITIONS: 1. Continue taking your prescribed Simvastatin and Fenofibrate to help lower your cholesterol. 2. START taking Losartan 25 mg by mouth daily. Your PCP will perform some repeat blood work and adjust dosing as necessary. This medication was started in the hospital. 3. START taking Aspirin 81 mg by mouth daily. This will reduce your risk of heart attack and stroke. SUMMARY OF TEST RESULTS: You had a chest x-ray that is negative for acute cardiopulmonary disease. You underwent a stress echocardiogram which was negative for ischemia meaning that the blood flow in the heart was adequate. There were no signs or symptoms suggestive of angina reproduced. Your resting blood pressure elevated as you exercised with a peak blood pressure of 243/101. The stress echocardiogram was terminated due to fatigue and elevated BP. These tests are being summarized for your PCP as well. RECOMMENDATIONS FOR FOLLOW-UP: 1. Your PCP office will contact you within the next day after discharge to arrange a follow up appointment that will take place over the next week. 2. At this time, you do not need to follow up with a it network engineer. 3. Please follow a heart healthy diet based on the attached pamphlet. OTHER INSTRUCTIONS: Seek medical attention if you have: * temperature above 101 * chest pain or trouble breathing * abdominal pain, nausea, vomiting * diarrhea, dark stools or bloody stools * any unanswered questions or concerns Call 911 if symptoms are severe. Please take good care of yourself. It has been a pleasure taking care of you. Please take care of yourself. If you have any questions regarding your recent hospitalization please contact [facility] and request Deb Kahn @ [phone]. Pending Studies at Discharge: No Stand-Alone Forms: My [facility], Smoking Cessation Medications and DC Order Prescriptions: New aspirin 81 mg Tablet,Delayed Release (Dr/Ec) 81 mg PO QAM Qty: 30 0RF losartan 25 mg Tablet 25 mg PO QAM Qty: 30 0RF Continued meloxicam 7.5 mg tablet 7.5 mg PO DAILY simvastatin 20 mg tablet 20 mg PO DAILY fenofibrate nanocrystallized 145 mg tablet 145 mg PO DAILY Discontinued doxycycline hyclate 100 mg capsule 100 mg PO BID Rx Instructions: Start Date 01/24/24 x14 days Discharge Orders: Discharge Order (Routine); Ordered 02/08/24 Ordered By: Tana Walsh/Other Patient Handouts: Your Risk Factors for Heart Disease, Low-Salt Choices, Risk Factors for Heart Disease, Understanding Food and Cholesterol, Understanding High Blood Pressure, Hypertension Dc Admission Data Admit Date/Time: 02/07/24 11:48 Attending Provider: Ck Caraballo Admit Provider: Cristofer Lawrence Primary Care Provider: Colby Moscoso Other Providers: Trung Berg Other Interventions: Discharge Summary Assessment (RN) Last Done: 02/08/24 12:10 Supervising Physician Co-Signing Physician Notes delayed entry date of service noted above Attending Addendum: Case reviewed with the advanced practitioner. I have personally performed a history and physical examination on the patient. I have reviewed the advanced practitioner's documentation on the date of service referenced in note, and I agree with, and take responsibility for the plan of care. please refer to her notes for full details patient seen and examined, records reviewed by myself as well Ck Caraballo MD
[2024-02-08 11:58] VITALS: PULSE 63; TEMP 97.7
[2024-02-08 12:11] VITALS: BP 137/77
--- OUTSIDE RECORDS SUMMARY | 2024-02-09 02:06 | External Medical Summary | Continuity of Care Document ---
Author Name Unknown Organization [place] Address [facility], [place] [address] Phone [phone] Problems Active Problems Provider Date Mixed hyperlipidemia Manuel Hammond JR, DO On set: 02/09/2015 Gastroesophageal reflux disease TRAY Zheng Onset: 02/09/2015 Body mass index 30+ - obesity Colby Moscoso DO Onset: 06/04/2018 Impaired fasting glycemia Colby Moscoso DO Ons et: 06/04/2018 Meralgia paresthetica Colby Moscoso DO Onset: 12/14/2023 Note: Document: 12/05/23 - O rthopaedic Consult Social History Type Date Description Comments Sex Unknown Tobacco Use Reviewed: 07/19/23 Never Smoked Cigarette s Smoking Status Reviewed: 07/19/23 Never Smoked Cigaret robbie Tobacco Use Reviewed: 07/19/23 Never Smoked Cigars Tobacco Use Reviewed: 07/19/23 Never Smoked A Pipe Smokeless Tobacco 07/19/2023 Quit - Age 56 Tobacco Use Start: Unknown Nonsmoker Allergies and adverse reactions Active Allergies Criticality Reaction | Severity Comments Date Codeine Unable to assess criticality hives 04/12/2011 Prednisone Unable to assess criticality severe abd pain/diarrhea 06/05/2015 Inactive Allergies NKDA Unable to assess criticality 08/11/2008 Medications Active Medications SIG Qnty Indications Ordering Provider Date Doxycycline [id number] Capsules 1 capsule by mouth twice a day 28caps R50.9 Colby Moscoso DO 01/24/2024 Meloxicam7.5mg Tablets Take 1 Tablet Daily With Food 90tabs M17.0 Colby Moscoso DO 10/24/2022 [id number] Tablets Take 1 Tablet Daily 90tabs E78.2 Colby Moscoso, DO 11/05/2021 [id number] Tablets Take 1 Tablet Daily 90tabs E78.2 Colby Moscoso, DO 03/03/2016 Medications Administered in Office Medication SIG Qnty Indications Ordering Provider Date Injection Methylprednisolone Acetate 20 MGInjection Di Curry PA-C 05/19/2022 Injection Methylprednisolone Acetate 20 MGInjection Lashawn black MD, PhD 06/05/2015 Injection Methylprednisolone Acetate 40 MGInjection TRAY Cadet 06/14/2004 Injection Dexamethasone Sodi um Phosphate, 1 MGInjection Justin Chambers 01/15/2004 Immunizations CPT Code Status Date Vaccine Lot # [id number] Given 05/29/2020 Moderna Sars-Co v-2 (Cov-19) vacc,100 mcg/ 0.5 mL 12Y+EMR Doc Only [id number] Given 04/30/2020 Moderna Sars-Co v-2 (Cov-19) vacc,100 mcg/ 0.5 mL 12Y+EMR Doc Only [id number] Given 01/08/2020 Influenza Virus Vaccine, Quadrivalent, Im Use [id number] Given 12/19/2018 Influenza Virus Vaccine, Quadrivalent, Im Use [id number] Refused 07/19/2023 Shingrix 90319 Refused 07/19/2023 [employer] Cov-19 Vacc (Ready To Use) EMR Doc Only [id number] Refused 07/19/2023 Influenza Virus Vaccine, Quadrivalent (Cciiv4), Derived From Cell [id number] Refused 03/03/2022 Shingrix 63797 Refused 03/03/2022 Moderna Sars-Co v-2 (Covid-19) Vaccine, BiValent Booster [id number] [id number] Refused 03/03/2022 Influenza Virus Vaccine, Quadrivalent (Cciiv4), Derived From Cell [id number] Refused 02/08/2021 Influenza Virus Vaccine, Quadrivalent (Cciiv4), Derived From Cell [id number] Refused 11/01/2017 Influenza Virus Vaccine, Quadrivalent, Im Use [id number] Refused 03/27/2017 Influenza Virus Vaccine, Quadrivalent, Im Use 57100 Refused 03/03/2016 Influenza Virus Vaccine, Quadrivalent, Im Use 20761 Refused 02/09/2015 Influenza Virus Vaccine, Quadrivalent, Im Use 68721 Refused 05/28/2014 Tdap (Tetanus, diphtheria & acel. pertussis) Adacel or Boostrix 30895 Refused 05/28/2014 Influenza Virus Vaccine, Quadrivalent, Im Use 53658 Refused 06/12/2013 Influenza Vac, Split 6 Mo nths And Older 40439 Refused 11/28/2011 Influenza Vac, Split 6 Mo nths And Older Vital Signs Date Vital Result Comment 01/24/2024 4:55pm BP Systolic 140 mmHg BP Diastolic 80 mmHg Body Temperature 102.5 F Heart Rate 88 /min Respiratory Rate 24 /min Weight 293.25 lb Weight 133.018 kg 07/19/2023 1:42pm BP Systolic 128 mmHg BP Diastolic 70 mmHg Body Temperature 98.2 F Heart Rate 80 /min Respiratory Rate 20 /min Weight 299.12 lb Weight 135.683 kg Height 74 inches 6'2" BMI (Body Mass Index) 38.4 kg/m2 [place] Body Weight 190 lb Results Test Acquired Date Facility Test Result H/L Range Note Laboratory test finding 01/24/2024 [facility] (In Office Test) Sars Rna QL PCR - In Office Negative Influenza A/B Molecular In-Off 01/24/2024 [facility] (In Office Test) Influenza A Molecular Negative Influenza B Molecular Negative Comp. Met 01/17/2024 [facility]. [address] [place] [address] [phone] Glucose 103 mg/dL 70-110 BUN 20 mg/dL 6-25 Creatinine 1.0 mg/dL 0.7-1.3 Sodium 142 mEq/L 135-145 Potassium 4.1 mEq/L 3.5-5.0 Chloride 104 mEq/L 95-107 Co-2 30 mEq/L 24-31 Alk Phos 77 IU/L 43-122 Alt(SGPT) 31 IU/L 10-40 Ast(Sgot) 21 IU/L 3-42 T.Bilirubin 0.6 mg/dL 0.1-1.3 Calcium 9.2 mg/dL 8.5-10.6 Tot.Protein 6.8 g/dL 5.8-8.0 Albumin 4.3 g/dL 3.0-5.2 Globulin 2.5 g/dL 2.0-3.4 GFR 81 ML/MIN/1.73 SQM >60 Hba1c 01/17/2024 [facility] [address] [place], [place] [id number] A1c 6.30 % 4.70-6.50 1 Lipid 01/17/2024 [facility] [address] [place] [address] Cholesterol 147 mg/dL 0-200 2 Triglyceride 154 mg/dL High 0-150 3 HDLD 35 mg/dL See Comment 4 Measured LDL 96 mg/dL 0-130 5 Calc VLDL 30.8 mg/dL See Comment 6 Chol/HDL 4.2 RATIO See Comment 7 Non-HDL 112 mg/dL See Comment 8 1 MEAN GLUCOSE IN mg/d L/A1c% POOR CONTROL FAIR CONTROL GOOD CONTROL EXCELLENT CONTROL 360-14 210-9 180-8 120-6 330-13 150-7 90-5 300-12 270-11 240-10 2 CHOLESTEROL Less than 200mg/dl Low risk 201-239 mg/dl Borderline risk Equal to or greater 240mg/dl High risk 3 TRIGLYCERIDES Less than 150mg/dl Normal 150-199mg/dl Borderline 200-499mg/dl High Greater than 500mg/dl Very High 4 HDL <40mg/dl Elevated Risk 41-59mg/dl Risk >=60mg/dl Least Risk 5 LDL <100mg/dl Optimal 100-129mg/dl Near Optimal 130-159mg/dl Borderline High 160-189mg/dl High >=190 Very High 6 VLDL Less than 30mg/dl Normal 7 CHOL/HDL <4.0 Optimal 4.0-5.0 Borderline >6.0 High Risk 8 NON-HDL 30mg/dl higher than LDL Target Procedures Date Code Description Status 01/24/2024 G2211 Continuation of care e/m vis it add on Completed 01/17/2024 55978 Venipuncture Routine Complet ed Medical Devices Description No Information Available Encounters Type Date Location Provider Dx Diagnosis Office Visit 01/24/2024 5:00p Chiquis Moscoso DO E78.2 Mixed hyperli pidemia K21.9 Gastro-esophageal re flux disease without esophagitis R73.01 Impaired fasting glu cose M17.0 Bilateral primary os teoarthritis of knee R50.9 Fever, unspecified S40.262A Insect bite (nonveno mous) of left shoulder, init encntr Assessments Date Code Description Provider 01/24/2024 E78.2 Mixed hyperlipidemia Colby Moscoso, DO 01/24/2024 K21.9 Gastro-esophagea l reflux disease without esophagitis Colby Moscoso, DO 01/24/2024 R73.01 Impaired fasting glucose Tod nikolai Moscoso, DO 01/24/2024 M17.0 Bilateral primary osteoarthr itis of knee Colby Moscoso, DO 01/24/2024 R50.9 Fever, unspecified Colby tomas, DO 01/24/2024 S40.262A Insect bite (non venomous) of left shoulder, initial encounter Colby Moscoso, 01/17/2024 E78.2 Mixed hyperlipidemia Colby Moscoso, DO 01/17/2024 E78.2 Mixed hyperlipidemia Lab [place] 01/17/2024 R73.01 Impaired fasting glucose Tonikolai Moscoso, 01/17/2024 R73.01 Impaired fasting glucose Lab - [place] 01/17/2024 K21.9 Gastro-esophagea l reflux disease without esophagitis Colby Moscoso, 01/17/2024 K21.9 Gastro-esophagea l reflux disease without esophagitis Lab - [place] Plan of Treatment Future Appointment(s):* 07/31/2024 5:00 pm - Colby Moscoso DO at [place] * 07/24/2024 6:30 am - Lab - [place] [facility] [place] Functional Status Description No Information Available Mental Status Description No Information Available Referrals Description No Information Available
--- OUTSIDE RECORDS SUMMARY | 2024-02-09 02:06 | External Medical Summary | Summary of Care ---
Author Name Unknown Organization [facility] Address [address] [facility] [place] [address] Phone [phone] Care Team Providers Care Relay Operator Name Role Phone Colby Moscoso Primary Care Provider [phone] Encounter Details Date Type Department Care Team (Late st Contact Info) Description 01/17/2024 Orders Only Unspecified Department Allergies Active Allergy Reactions Criticality Noted Date Comments Codeine Hives 06/13/2015 Prednisone Nausea/vomiting 06/13/2015 documented as of this encounter (statuses as of 01/17/2024) Medications fenofibrate (TRICOR) 145 MG Tablet Take 1 Tablet by mouth every afternoon. Active Simvastatin 20 MG Oral Tablet (Zocor) Take 1 Tablet by mouth every afternoon. 10/05/2020 Active Meloxicam 15 MG Oral Tablet Take by mouth. 03/03/2022 Active documented as of this encounter (statuses as of 01/17/2024) Active Problems Problem Noted Date Diagnosed Date Hyperlipidemia 02/11/2022 Ureterolithiasis 02/11/2022 Acute supraglottitis with epiglottitis in adult 02/11/2022 Chews tobacco regularly 02/11/2022 documented as of this encounter (statuses as of 01/17/2024) Resolved Problems Problem Noted Date Diagnosed Date Resolved Date Hypoxia 02/11/2022 02/12/2022 documented as of this encounter (statuses as of 01/17/2024) Social History Tobacco Use Types Packs/Day Years Used Date Smoking Tobacco: Never Smokeless Tobacco: Current Snuff Alcohol Use Standard Drinks/Week Comments Not Currently 0 (1 standard drink = 0.6 oz pur e alcohol) occasional Sex and Gender Information Value Date Recorded Sex Assigned at Not on file Legal Sex Male 5:24 AM EST Gender Identity Not on file Sexual Orientation Not on file documented as of this encounter Functional Status * Are you deaf or do you have serious difficulty hearing? Answer Date of Assessment Author No 02/11/2022 8:00 AM Terrie Bowen RN * Are you blind or do you have serious difficulty seeing, even when wearing glasses? Answer Date of Assessment Author No 02/11/2022 8:00 AM Terrie Bowen RN * Do you have serious difficulty walking or climbing stairs? (5 years old or older) Answer Date of Assessment Author No 02/11/2022 8:00 AM Terrie Bowen RN * Do you have difficulty dressing or bathing? (5 years old or older) Answer Date of Assessment Author No 02/11/2022 8:00 AM Terrie Bowen RN * Because of a physical, mental, or emotional condition, do you have difficulty doing errands alone such as visiting a doctors office or shopping? (15 years old or older) Answer Date of Assessment Author No 02/11/2022 8:00 AM Terrie Bowen RN documented as of this encounter Mental Status * Because of a physical, mental, or emotional condition, do you have serious difficulty concentrating, remembering, or making decisions? (5 years old or older) Answer Entry Date Author No 02/11/2022 8:00 AM Terrie Bowen RN documented in this encounter Plan of Treatment Health Maintenance Due Date Last Done Comments Depression Screening 1975 HIV Screening 05/04/1978 Hepatitis C Screening 05/04/1981 DTap/Tdap Vaccines (1 - Tdap) 05/04/1982 Cologuard 05/04/2008 Colonoscopy 05/04/2008 Colorectal Cancer Screening 05/04/2008 Fecal Occult Blood Test 05/04/2008 Sigmoidoscopy 05/04/2008 Zoster Vaccines (1 of 2) 05/04/2013 COVID-19 Vaccine ( season) 2023 05/29/2020, 04/30/2020 Influenza Vaccine (FLU shot) (#1) 2023 01/08/2020, 12/19/2018 Diabetes Screening 01/16/2027 01/17/2024, 1 03/18/2023, 05/01/2023, Additional history exists Lipid Panel 01/16/2029 01/17/2024, 05/2023, 08/26/2022, Additional history exists HPV (Gardasil) Vaccine Aged Out No lo nger eligible based on patient's age to complete this topic Hepatitis B Vaccine Aged Out No longe r eligible based on patient's age to complete this topic MENINGOCOCCAL (MENACTRA/MENVEO) Aged Out No longer eligible based on patient's age to complete this topic Pneumococcal Vaccine: Pediatrics (0 to 5 Years) and At-Risk Patients (6 to 64 Years) Aged Out No longer eligible based on patient's age to complete this topic documented as of this encounter Medical Devices Not on filedocumented as of this encounter Procedures Procedure Name Priority Date/Time Associated Diagnosis Comments A1C - OUTSIDE LAB Routine 01/17/2024 6:2 9 AM EST COMPREHENSIVE METABOLIC PANEL Routine 01/17/2024 6:29 AM EST LIPID PANEL WITHOUT DIRECT LDL Routine 01/17/2024 6:29 AM EST documented in this encounter Results * (ABNORMAL) LIPID PANEL WITHOUT DIRECT LDL (01/17/2024 6:29 AM EST) CHOLESTEROL-Out side Lab 147 0 - 200 MG/DL 01/17/2024 10:52 AM EST [facility] Comment: Document delivery by Konstantin on behalf of [facility] CHOLESTEROL Less than 200mg/dl Low risk 201-239 mg/dl Borderline risk Equal to or greater 240mg/dl High risk TRIGLYCERIDES-O UTSIDE LAB 154(H) 0 - 150 MG/DL 01/17/2024 10:52 AM EST [facility] Comment: Document delivery by Konstantin on behalf of [facility] TRIGLYCERIDES Less than 150mg/dl Normal 150-199mg/dl Borderline 200-499mg/dl High Greater than 500mg/dl Very High HDLD - OUTSIDE LAB 35 SEE COMMENT MG/DL 01/17/2024 10:52 AM EST [facility] Comment: Document delivery by Konstantin on behalf of [facility] HDL <40mg/dl Elevated Risk 41-59mg/dl Risk >=60mg/dl Least Risk LDL (DIRECT MEASURE)-OUTSID E LAB 96 0 - 130 MG/DL 01/17/2024 10:52 AM EST [facility] Comment: Document delivery by Konstantin on behalf of [facility] LDL <100mg/dl Optimal 100-129mg/dl Near Optimal 130-159mg/dl Borderline High 160-189mg/dl High >=190 Very High CALCULATED VLDL - OUTSIDE LAB 30.8 SEE COMMENT MG/DL 01/17/2024 10:52 AM EST [facility] Comment: Document delivery by Konstantin on behalf of [facility] VLDL Less than 30mg/dl Normal HDLD - OUTSIDE LAB 4.2 SEE COMMENT RATIO 01/17/2024 10:52 AM EST [facility] Comment: Document delivery by Konstantin on behalf of [facility] CHOL/HDL <4.0 Optimal 4.0-5.0 Borderline >6.0 High Risk NON-HDL - OUTSIDE LAB 112 SEE COMMENT MG/DL 01/17/2024 10:52 AM EST [facility] Comment: Document delivery by Konstantin on behalf of [facility] NON-HDL 30mg/dl higher than LDL Target 01/17/2024 6:29 AM EST us No Physician Data Unknown LAB BLOOD ORDERABLES F inal Result [facility] [address] [place] [address] * A1C - OUTSIDE LAB (01/17/2024 6:29 AM EST) A1C - OUTSIDE LAB 6.30 4.70 - 6.50 % 01/17/2024 10:35 AM EST [facility] Comment: Document delivery by Konstantin on behalf of [facility] MEAN GLUCOSE IN mg/dL/A1c% POOR CONTROL FAIR CONTROL GOOD CONTROL EXCELLENT CONTROL 360-14 210-9 180-8 120-6 330-13 150-7 90-5 300-12 270-11 240-10 01/17/2024 6:29 AM EST us No Physician Data Unknown LABORATORY Final Result [facility] [address] [place] [address] * COMPREHENSIVE METABOLIC PANEL (01/17/2024 6:29 AM EST) Pathologist [facility] GLUCOSE 103 70 - 110 MG/DL 01/17/2024 10:52 AM EST [facility] Comment:Document delivery by Konstantin on behalf of [facility] BUN 20 6 - 25 MG/DL 01/17/2024 10:52 AM EST [facility] Comment:Document delivery by Konstantin on behalf of [facility] CREATININE 1.0 0.7 - 1.3 MG/DL 01/17/2024 10:52 AM EST [facility] Comment:Document delivery by Konstantin on behalf of [facility] SODIUM 142 135 - 145 MEQ/L 01/17/2024 10:52 AM EST [facility] Comment:Document delivery by Konstantin on behalf of [facility] POTASSIUM 4.1 3.5 - 5.0 MEQ/L 01/17/2024 10:52 AM EST [facility] Comment:Document delivery by Konstantin on behalf of [facility] CHLORIDE 104 95 - 107 MEQ/L 01/17/2024 10:52 AM EST [facility] Comment:Document delivery by Konstantin on behalf of [facility] CO2 30 24 - 31 MEQ/L 01/17/2024 10:52 AM EST [facility] Comment:Document delivery by Konstantin on behalf of [facility] ALKALINE PHOSPHATASE-OUT SIDE LAB 77 43 - 122 IU/L 01/17/2024 10:52 AM EST [facility] Comment:Document delivery by Konstantin on behalf of [facility] ALT-OUTSIDE LAB 31 10 - 40 IU/L 01/17/2024 10:52 AM EST [facility] Comment:Document delivery by Konstantin on behalf of [facility] AST-OUTSIDE LAB 21 3 - 42 IU/L 01/17/2024 10:52 AM EST [facility] Comment:Document delivery by Konstantin on behalf of [facility] TOTAL BILIRUBIN - OUTSIDE LAB 0.6 0.1 - 1.3 MG/DL 01/17/2024 10:52 AM EST [facility] Comment:Document delivery by Konstantin on behalf of [facility] CALCIUM 9.2 8.5 - 10.6 MG/DL 01/17/2024 10:52 AM EST [facility] Comment:Document delivery by Konstantin on behalf of [facility] TOTAL PROTEIN - OUTSIDE LAB 6.8 5.8 - 8.0 G/DL 01/17/2024 10:52 AM EST [facility] Comment:Document delivery by Konstantin on behalf of [facility] ALBUMIN - OUTSIDE LAB 4.3 3.0 - 5.2 G/DL 01/17/2024 10:52 AM EST [facility] Comment:Document delivery by Konstantin on behalf of [facility] GLOBULIN-OUTSID E LAB 2.5 2.0 - 3.4 G/DL 01/17/2024 10:52 AM EST [facility] Comment:Document delivery by Konstantin on behalf of [facility] EGFR 81 >60 ML/MIN/1.7 3 SQM 01/17/2024 10:52 AM EST [facility] Comment:Document delivery by Konstantin on behalf of [facility] 01/17/2024 6:29 AM EST us No Physician Data Unknown LAB BLOOD ORDERABLES F inal Result [facility] [address] [facility] [address] [place] [address] documented in this encounter Advance Directives * Full Code (Latest Code Status on File) Date Activated Date Inactivated Comments 02/11/2022 6:49 AM 02/12/2022 4:18 PM This order reflects the patients wishes and were consensually agreed upon. Question Answer Comments Discussion of Advance Directives occurred with: Patient Does the patient have a Living Will? No Does the patient have Health Care Power of Attor chelsea? No Care Teams Relay Operator Relationship Specialty Start Date End Date [facility] [address] [address] PCP - General Family Medicine 06/13/15 documented as of this encounter
--- OUTSIDE RECORDS SUMMARY | 2024-02-09 02:06 | External Medical Summary | Continuity of Care Document ---
Author Name Unknown Organization [facility] Address [address] [place] [address] Phone [phone] Problems Active Problems Provider Date Mixed hyperlipidemia [...] Medications SIG Qnty Indications Ordering Provider Date Meloxicam7.5mg Tablets Take 1 Tablet Daily With Food 90tabs M17.0 Colby Moscoso DO 10/24/2022 [id number] Tablets Take 1 Tablet Daily 90tabs E78.2 Colby Moscoso DO 11/05/2021 [id number] Tablets Take 1 Tablet Daily 90tabs E78.2 Colby Moscoso DO 03/03/2016 Medications Administered in Office Medication SIG Qnty Indications Ordering Provider Date Injection Methylprednisolone Acetate 20 MGInjection Di Curry PA-C 05/19/2022 Injection Methylprednisolone Acetate 20 MGInjection Lashawn black MD, PhD 06/05/2015 Injection Methylprednisolone Acetate 40 MGInjection TRAY Cadet 06/14/2004 Injection Dexamethasone Sodi um Phosphate, 1 MGInjection Justin Chambers 01/15/2004 Immunizations CPT Code Status Date Vaccine Lot # [id number] Given 05/29/2020 Moderna Sars-Co v-2 (Cov-19) vacc,100 mcg/ 0.5 mL 12Y+EMR Doc Only [id number] 16960 Given 04/30/2020 Moderna Sars-Co v-2 (Cov-19) vacc,100 mcg/ 0.5 mL 12Y+EMR Doc Only [id number] 94010 Given 01/08/2020 Influenza Virus Vaccine, Quadrivalent, Im Use [id number] 85383 Given 12/19/2018 Influenza Virus Vaccine, Quadrivalent, Im Use [id number] 31075 Refused 07/19/2023 Shingrix 63993 Refused 07/19/2023 Graph Story Cov-19 Vacc (Ready To Use) EMR Doc Only [id number] Refused 07/19/2023 Influenza Virus Vaccine, Quadrivalent (Cciiv4), Derived From Cell [id number] Refused 03/03/2022 Shingrix 73822 Refused 03/03/2022 Moderna Sars-Co v-2 (Covid-19) Vaccine, BiValent Booster 12y+ [id number] Refused 03/03/2022 Influenza Virus Vaccine, Quadrivalent (Cciiv4), Derived From Cell [id number] Refused 02/08/2021 Influenza Virus Vaccine, Quadrivalent (Cciiv4), Derived From Cell [id number] Refused 11/01/2017 Influenza Virus Vaccine, Quadrivalent, Im Use 34422 Refused 03/27/2017 Influenza Virus Vaccine, Quadrivalent, Im Use 13802 Refused 03/03/2016 Influenza Virus Vaccine, Quadrivalent, Im Use 55849 Refused 02/09/2015 Influenza Virus Vaccine, Quadrivalent, Im Use 01580 Refused 05/28/2014 Tdap (Tetanus, diphtheria & acel. pertussis) Adacel or Boostrix 33660 Refused 05/28/2014 Influenza Virus Vaccine, Quadrivalent, Im Use 81550 Refused 06/12/2013 Influenza Vac, Split 6 Mo nths And Older 35678 Refused 11/28/2011 Influenza Vac, Split 6 Mo nths And Older Vital Signs Date Vital Result Comment 07/19/2023 1:42pm BP Systolic 128 mmHg BP Diastolic 70 mmHg Body Temperature 98.2 F Heart Rate 80 /min Respiratory Rate 20 /min Weight 299.12 lb Weight 135.683 kg Height 74 inches 6'2" BMI (Body Mass Index) 38.4 kg/m2 [place] Body Weight 190 lb 10/24/2022 7:14am BP Systolic 136 mmHg BP Diastolic 84 mmHg Body Temperature 97.7 F Heart Rate 82 /min Respiratory Rate 16 /min Weight 289.12 lb Weight 131.147 kg Results Test Acquired Date Facility Test Result H/L Range N ote Comp. Met 01/17/2024 [facility] [address] [place] [address] [phone] Glucose 103 mg/dL 70-110 BUN 20 mg/dL 6-25 Creatinine 1.0 mg/dL 0.7-1.3 Sodium 142 mEq/L 135-145 Potassium 4.1 mEq/L 3.5-5.0 Chloride 104 mEq/L 95-107 Co-2 30 mEq/L 24-31 Alk Phos 77 IU/L 43-122 Alt(SGPT) 31 IU/L 10-40 Ast(Sgot) 21 IU/L 3-42 T.Bilirubin 0.6 mg/dL 0.1-1.3 Calcium 9.2 mg/dL 8.5-10.6 Tot.Protein 6.8 g/dL 5.8-8.0 Albumin 4.3 g/dL 3.0-5.2 Globulin 2.5 g/dL 2.0-3.4 GFR 81 ML/MIN/1.73S QM >60 Hba1c 01/17/2024 [facility] [address] [place] [address] [phone] A1c 6.30 % 4.70-6.50 1 Lipid 01/17/2024 [facility] [address] [place] [address] [phone] Cholesterol 147 mg/dL 0-200 2 Triglyceride 154 [...] LDL Target Procedures Date Code Description Status 01/17/2024 83919 Venipuncture Routine Complet ed 07/19/2023 G2211 Continuation of care e/m vis it add on Completed Medical Devices Description No Information Available Encounters Type Date Location Provider Dx Diagnosis Office Visit 07/19/2023 2:00p [facility] Colby Moscoso, DO E78.2 Mixed hyperli pidemia K21.9 Gastro-esophageal re flux disease without esophagitis R73.01 Impaired fasting glu cose R25.2 Cramp and spasm Assessments Date Code Description Provider 01/17/2024 E78.2 Mixed hyperlipidemia Lab - [place] 01/17/2024 R73.01 Impaired fasting glucose Lab - [facility] 01/17/2024 K21.9 Gastro-esophagea l reflux disease without esophagitis Lab - [place] 07/19/2023 E78.2 Mixed hyperlipidemia Colby Moscoso DO 07/19/2023 K21.9 Gastro-esophagea l reflux disease without esophagitis Colby Moscoso, DO 07/19/2023 R73.01 Impaired fasting glucose Fahad Moscoso, 07/19/2023 R25.2 Cramp and spasm Colby Naranjo or, DO Plan of Treatment Future Appointment(s):* 01/24/2024 5:00 pm - Colby Moscoso, DO at [facility] 07/19/2023 - Colby Moscoso, DO* E78.2 Mixed hyperlipidemia* Comments:* chol and LDL fairly stable continue fenofibrate and simvastatin, He is having some leg cramps but only right leg. He will call f they do not improve with some hydration. will follow * Recommendations:* 1. Continue current medication 2. Continue low cholesterol/fat diet and exercise 3. Discussed appropriate labs and screening tests * K21.9 Gastro-esophageal reflux disease without esophagitis* Comments:* stable not taking any meds, no sxs, will follow * R73.01 Impaired fasting glucose* Comments:* FBS stable, A1c improved continue diet and will follow * R25.2 Cramp and spasm* Comments:* having cramps in right lower leg no sign of DVT and pulses strong no palpable tenderness
he will try to make sure he is staying well hydrated he will call for more follow up If cramps continue or worse * All* Follow up:* 1. Follow up with me 6 months with [facility] 1 week before(cmp, hem a1c, lipids Functional Status Description No Information Available Mental Status Description No Information Available Referrals Description No Information Available
--- OUTSIDE RECORDS SUMMARY | 2024-02-09 02:06 | External Medical Summary | Continuity of Care Document ---
Author Name Unknown Organization [facility] Address [address] [place] [address] Phone [phone] Problems Active Problems Provider Date Mixed hyperlipidemia [...] Food 90tabs M17.0 Colby Moscoso DO 10/24/2022 [id number] Tablets Take 1 Tablet Daily 90tabs E78.2 Colby Moscoso DO 11/05/2021 [id number] Tablets Take 1 Tablet Daily 90tabs E78.2 [...] CPT Code Status Date Vaccine Lot # [id number] Given 05/29/2020 Moderna Sars-Co v-2 (Cov-19) vacc,100 mcg/ 0.5 mL 12Y+EMR Doc Only [id number] 81822 Given 04/30/2020 Moderna Sars-Co v-2 (Cov-19) vacc,100 mcg/ 0.5 mL 12Y+EMR Doc Only [id number] 25485 Given 01/08/2020 Influenza Virus Vaccine, Quadrivalent, Im Use [id number] 04445 Given 12/19/2018 Influenza Virus Vaccine, Quadrivalent, Im Use [id number] 08744 Refused 07/19/2023 Shingrix 14201 Refused 07/19/2023 Sendori Cov-19 Vacc (Ready To Use) EMR Doc Only 15177 Refused 07/19/2023 Influenza Virus Vaccine, Quadrivalent (Cciiv4), Derived From Cell 31033 Refused 03/03/2022 Shingrix 17331 Refused 03/03/2022 Moderna Sars-Co v-2 (Covid-19) Vaccine, BiValent Booster 12y+ 85585 Refused 03/03/2022 Influenza Virus Vaccine, Quadrivalent (Cciiv4), Derived From Cell 89576 Refused 02/08/2021 Influenza Virus Vaccine, Quadrivalent (Cciiv4), Derived From Cell 84433 Refused 11/01/2017 Influenza Virus Vaccine, Quadrivalent, Im Use 94618 Refused 03/27/2017 Influenza Virus Vaccine, Quadrivalent, Im Use 23603 Refused 03/03/2016 Influenza Virus Vaccine, Quadrivalent, Im Use 11608 Refused 02/09/2015 Influenza Virus Vaccine, Quadrivalent, Im Use 58531 Refused 05/28/2014 Tdap (Tetanus, diphtheria & acel. pertussis) Adacel or Boostrix 14953 Refused 05/28/2014 Influenza Virus Vaccine, Quadrivalent, Im Use 28010 Refused 06/12/2013 Influenza Vac, Split 6 Mo nths And Older 49868 Refused 11/28/2011 Influenza Vac, Split 6 Mo nths And Older Vital Signs Date Vital Result Comment 07/19/2023 1:42pm BP Systolic 128 mmHg BP Diastolic 70 mmHg Body Temperature 98.2 F Heart Rate 80 /min Respiratory Rate 20 /min Weight 299.12 lb Weight 135.683 kg Height 74 inches 6'2" BMI (Body Mass Index) 38.4 kg/m2 [place] Body Weight 190 lb 10/24/2022 7:14am BP Systolic 136 mmHg BP Diastolic 84 mmHg Body Temperature 97.7 F Heart Rate 82 /min Respiratory Rate 16 /min Weight 289.12 lb Weight 131.147 kg Results Test Acquired Date Facility Test Result H/L Range N ote Comp. Met 01/17/2024 [facility] [address] [place] [address] [phone] Glucose 103 mg/dL 70-110 BUN 20 mg/dL [...] GFR 81 ML/MIN/1.73S QM >60 Hba1c 01/17/2024 [facility] [address] [place] [address] [phone] A1c 6.30 % 4.70-6.50 1 Lipid 01/17/2024 [facility] [address] [place] [address] [phone] Cholesterol 147 mg/dL 0-200 2 Triglyceride 154 [...] Target Procedures Date Code Description Status 01/17/2024 23365 Venipuncture Routine Complet ed Medical Devices Description No Information Available Encounters Description No Information Available Assessments Date Code Description Provider 01/17/2024 E78.2 Mixed hyperlipidemia Colby Moscoso DO 01/17/2024 E78.2 Mixed hyperlipidemia Lab - [place] 01/17/2024 R73.01 Impaired fasting glucose Tod nikolai Moscoso DO 01/17/2024 R73.01 Impaired fasting glucose Lab - [place] 01/17/2024 K21.9 Gastro-esophagea l reflux disease without esophagitis Colby Moscoso DO 01/17/2024 K21.9 Gastro-esophagea l reflux disease without esophagitis Lab - [place] Plan of Treatment 07/19/2023 - Colby Moscoso DO* E78.2 Mixed hyperlipidemia* Comments:* chol and [...]
--- OUTSIDE RECORDS SUMMARY | 2024-02-09 02:07 | External Medical Summary ---
Author Name Unknown Address Unknown Organization K1[facility] [address] [place] [address] Laboratory Report Ordering Provider Test Date Status BENNY HIGHTOWER 01/17/2024 06:29 Final Observation Date Value Abnormality Reference (Units ) Status HbA1C 01/17/2024 10:35 6.30 4.70-6.50 (%) Final MEAN GLUCOSE IN mg/dL/A1c%<b r/> POOR CONTROL FAIR CONTROL GOOD CONTROL EXCELLENT CONTROL
360-14 210-9 180-8 120-6
330-13 150-7 90-5
300-12
270-11
240-10 Performing Location [facility] [address] [place] [address]
--- OUTSIDE RECORDS SUMMARY | 2024-02-09 02:07 | External Medical Summary ---
Author Name Unknown Address Unknown Organization [facility]:[address] [place] [address] Laboratory Report Ordering Provider Test Date Status BENNY HIGHTOWER 01/17/2024 06:29 Final Observation Date Value Abnormality Reference (Units ) Status Cholesterol 01/17/2024 10:52 147 0-200 (MG/D L) Final CHOLESTEROL
Less than 2 00mg/dl Low risk
201-239 mg/dl Borderline risk
Equal to or greater 240mg/dl High risk Triglyceride 01/17/2024 10:52 154 Above high normal 0- 150 (MG/DL) Final TRIGLYCERIDES
Less than 150mg/dl Normal
150-199mg/dl Borderline
200-499mg/dl High
Greater than 500mg/dl Very High HDL 01/17/2024 10:52 35 SEE COMMENT ( MG/DL) Final HDL
<40mg/dl Elevated R isk
41-59mg/dl Risk
>=60mg/dl Least Risk Cholesterol in LDL [Mass/vol ume] in Serum or Plasma 01/17/2024 10:52 96 0-130 (MG/DL) Final LDL
<100mg/dl Optimal<b r/> 100-129mg/dl Near Optimal
130-159mg/dl Borderline High
160-189mg/dl High
>=190 Very High Cholesterol in VLDL [Mass/vo lume] in Serum or Plasma 01/17/2024 10:52 30.8 SEE COMMENT (MG/DL ) Final VLDL
Less than 30mg/dl Normal HDL 01/17/2024 10:52 4.2 SEE COMMENT ( RATIO) Final CHOL/HDL
<4.0 Optimal<b r/> 4.0-5.0 Borderline
>6.0 High Risk NON-HDL 01/17/2024 10:52 112 SEE COMMENT ( MG/DL) Final NON-HDL
30mg/dl higher than LDL Target Performing Location [facility] [address] [place] [address]
--- OUTSIDE RECORDS SUMMARY | 2024-02-09 02:07 | External Medical Summary ---
Author Name Unknown Address Unknown Organization [facility]:[address] [place] [address] Laboratory Report Ordering Provider Test Date Status BENNY HIGHTOWER 01/17/2024 06:29 Final Observation Date Value Abnormality Reference (Units ) Status Glucose 01/17/2024 10:52 103 70-110 (MG/DL ) Final BUN 01/17/2024 10:52 20 6-25 (MG/DL) Final Creatinine 01/17/2024 10:52 1.0 0.7-1.3 (MG/ DL) Final Sodium 01/17/2024 10:52 142 135-145 (MEQ/ L) Final Potassium 01/17/2024 10:52 4.1 3.5-5.0 (MEQ/ L) Final Cl 01/17/2024 10:52 104 95-107 (MEQ/L ) Final CO2 01/17/2024 10:52 30 24-31 (MEQ/L) Final Alk Phos 01/17/2024 10:52 77 43-122 (IU/L) Final ALT (Alanine aminotransferase) 01/17/2024 10:52 31 10-40 (IU/L) Final AST (Aspartate aminotransferase) 01/17/2024 10:52 21 3-42 (IU/L) Final Bilirubin, Total 01/17/2024 10:52 0.6 0.1-1. 3 (MG/DL) Final Calcium 01/17/2024 10:52 9.2 8.5-10.6 (MG/ DL) Final Protein 01/17/2024 10:52 6.8 5.8-8.0 (G/DL ) Final Albumin 01/17/2024 10:52 4.3 3.0-5.2 (G/DL ) Final GLOBULIN 01/17/2024 10:52 2.5 2.0-3.4 (G/DL ) Final GFR (estimated) 01/17/2024 10:52 81 >60 (ML /MIN/1.73 SQM) Final Performing Location [facility] [address] [place] [address]
--- OUTSIDE RECORDS SUMMARY | 2024-02-09 02:07 | External Medical Summary | Continuity of Care Document ---
Author Name Unknown Organization [facility] Address [address] [place] [address] Phone [phone] Problems Active Problems Provider Date Mixed hyperlipidemia [...] Food 90tabs M17.0 Colby Moscoso DO 10/24/2022 [id number] Tablets Take 1 Tablet Daily 90tabs E78.2 Colby Moscoso DO 11/05/2021 [id number] Tablets Take 1 Tablet Daily 90tabs E78.2 [...] CPT Code Status Date Vaccine Lot # 27532 Given 05/29/2020 Moderna Sars-Co v-2 (Cov-19) vacc,100 mcg/ 0.5 mL 12Y+EMR Doc Only [id number] 05737 Given 04/30/2020 Moderna Sars-Co v-2 (Cov-19) vacc,100 mcg/ 0.5 mL 12Y+EMR Doc Only [id number] 97491 Given 01/08/2020 Influenza Virus Vaccine, Quadrivalent, Im Use [id number] 62371 Given 12/19/2018 Influenza Virus Vaccine, Quadrivalent, Im Use [id number] 24619 Refused 07/19/2023 Shingrix 15716 Refused 07/19/2023 Mobilio Cov-19 Vacc (Ready To Use) EMR Doc Only [id number] Refused 07/19/2023 Influenza Virus Vaccine, Quadrivalent (Cciiv4), Derived From Cell 25805 Refused 03/03/2022 Shingrix 50173 Refused 03/03/2022 Moderna Sars-Co v-2 (Covid-19) Vaccine, BiValent Booster 12y+ [id number] Refused 03/03/2022 Influenza Virus Vaccine, Quadrivalent (Cciiv4), Derived From Cell 96996 Refused 02/08/2021 Influenza Virus Vaccine, Quadrivalent (Cciiv4), Derived From Cell 07999 Refused 11/01/2017 Influenza Virus Vaccine, Quadrivalent, Im Use 55942 Refused 03/27/2017 Influenza Virus Vaccine, Quadrivalent, Im Use 07156 Refused 03/03/2016 Influenza Virus Vaccine, Quadrivalent, Im Use 39266 Refused 02/09/2015 Influenza Virus Vaccine, Quadrivalent, Im Use 46980 Refused 05/28/2014 Tdap (Tetanus, diphtheria & acel. pertussis) Adacel or Boostrix 19582 Refused 05/28/2014 Influenza Virus Vaccine, Quadrivalent, Im Use 56749 Refused 06/12/2013 Influenza Vac, Split 6 Mo nths And Older 40463 Refused 11/28/2011 Influenza Vac, Split 6 Mo nths And Older Vital Signs Date Vital Result Comment 07/19/2023 1:42pm BP Systolic 128 mmHg BP Diastolic 70 mmHg Body Temperature 98.2 F Heart Rate 80 /min Respiratory Rate 20 /min Weight 299.12 lb Weight 135.683 kg Height 74 inches 6'2" BMI (Body Mass Index) 38.4 kg/m2 [place] Body Weight 190 lb 10/24/2022 7:14am BP Systolic 136 mmHg BP Diastolic 84 mmHg Body Temperature 97.7 F Heart Rate 82 /min Respiratory Rate 16 /min Weight 289.12 lb Weight 131.147 kg Procedures Date Code Description Status 01/17/2024 43905 Venipuncture Routine Complet ed 07/19/2023 G2211 Continuation of care e/m vis it add on Completed Medical Devices Description No Information Available Encounters Type Date Location Provider Dx Diagnosis Office Visit 07/19/2023 2:00p [place] Colby Moscoso DO E78.2 Mixed hyperli pidemia K21.9 Gastro-esophageal re flux disease without esophagitis R73.01 Impaired fasting glu cose R25.2 Cramp and spasm Assessments Date Code Description Provider 01/17/2024 E78.2 [facility]17/[facility]24 R73.01 Impaired fasting glucose Lab - [facility] 01/17/2024 K21.9 Gastro-esophagea l reflux disease without esophagitis Lab - [place] 07/19/2023 E78.2 Mixed hyperlipidemia Colby Moscoso DO 07/19/2023 K21.9 Gastro-esophagea l reflux disease without esophagitis Colby Moscoso DO 07/19/2023 R73.01 Impaired fasting glucose Fahad Moscoso DO 07/19/2023 R25.2 Cramp and spasm Colby Naranjo or, DO Plan of Treatment Future Appointment(s):* 01/24/2024 5:00 pm - Colby Moscoso DO at [facility] 07/19/2023 - Colby Moscoso DO* E78.2 Mixed [...]
== END 2024-02-08 12:38 | disposition home or self-care (01) | DRG 313 ==
LOC: ED 07:37 → 2E 11:48 → INTOOBSV 11:48 → SUATTDRO 11:48 → 2E 13:14